=== PATIENT | female | born 1995 | race Caucasian/White ===

== ENCOUNTER 2017-09-08 11:15 | Emergency (ER) | payer SELFPAY ==
[2017-09-08 13:10] LABS: Urine Blood NEGATIVE (NEG); Urine Glucose NEGATIVE (NEG); Urine Protein NEGATIVE (NEG); Urine Specific Gravity 1.015 (1.005-1.030)
--- NOTE | 2017-09-08 13:21 | ER ---
Nurse's Notes [facility] Name: Marci Chandler Age: 21 yrs Sex: Female : 1995 Arrival Date: 09/08/2017 Time: 11:18 Bed 20 Private MD: Out, [facility] Diagnosis: Encounter for screening, unspecified Presentation: 09/08 11:25 Presenting complaint: Patient states: Reports waking up this AM and then hit head "not aj hard or anything" on ceiling of travel trailer. Patient then reported feeling flushed and then feeling "weird" all over, then began feeling like she was having difficulty breathing. Patient is in NAD in triage and reports symptoms have resolved. Transition of care: patient was not received from another setting of care. Onset of symptoms was September 08, 2017. Risk Assessment: Do you want to hurt yourself or someone else? Patient reports no desire to harm self or others. Care prior to arrival: None. 11:25 Method Of Arrival: Ambulatory aj 11:25 Acuity: WAI 4 aj 12:20 Initial Sepsis Screen: Does the patient meet any 2 criteria? No. Patient's initial sv sepsis screen is negative. Does the patient have a suspected source of infection? No. Patient's initial sepsis screen is negative. Triage Assessment: 11:27 General: Appears in no apparent distress. comfortable, Behavior is appropriate for age, aj quiet. Pain: Denies pain. Neuro: Level of Consciousness is awake, alert, obeys commands, Oriented to person, place, time, situation, Appropriate for age. Respiratory: Airway is patent Respiratory effort is even, unlabored, Respiratory pattern is regular, symmetrical. Derm: Skin is intact, is healthy with good turgor, Skin is pink, warm \\T\\ dry. normal. 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 - Social history:: Smoking status: Patient/guardian denies using tobacco. - Ebola Screening: : Patient negative for fever greater than or equal to 101.5 degrees Fahrenheit, and additional compatible Ebola Virus Disease symptoms Patient denies exposure to infectious person Patient denies travel to an Ebola-affected area in the 21 days before illness onset No symptoms or risks identified at this time. Screenin:42 Abuse screen: Denies threats or abuse. Denies injuries from another. Nutritional sv screening: No deficits noted. Tuberculosis screening: No symptoms or risk factors identified. Fall Risk None identified. Assessment: 12:20 General: Appears in no apparent distress. comfortable, Behavior is calm, cooperative, sv appropriate for age. Pain: Denies pain. Neuro: Level of Consciousness is awake, alert, obeys commands, Oriented to person, place, time, situation, Moves all extremities. Full function Gait is steady, Speech is normal. Respiratory: Respiratory effort is even, unlabored, Respiratory pattern is regular, symmetrical. Derm: Skin is normal. Vital Signs: 11:27 BP 131 / 67; Pulse 75; Resp 16; Temp 98.0; Pulse Ox 100% on R/A; Weight 61.23 kg; aj Height 5 ft. 2 in. (157.48 cm); 11:27 Body Mass Index 24.69 (61.23 kg, 157.48 cm) aj ED Course: 11:18 Patient arrived in ED. sb2 11:18 Out, of Town is Private Physician. sb2 11:27 Triage completed. aj 11:27 Arm band placed on left wrist. Patient placed in waiting room, Patient notified of wait aj time. 12:02 Emigdio Villafuerte PA is PHCP. cp 12:02 Suresh Avelar MD is Attending Physician. cp 12:17 Nova Herman, JUAN is Primary Nurse. sv 12:58 Urine collected: clean catch specimen, clear. mh5 13:17 EKG done, by lighting engineering technician. reviewed by Emigdio QUINTERO. at1 13:42 Patient has correct armband on for positive identification. Bed in low position. Call sv light in reach. Adult w/ patient. 13:43 No provider procedures requiring assistance completed. Patient did not have IV access sv during this emergency room visit. Administered Medications: No medications were administered Outcome: 13:21 Discharge ordered by . cp 13:42 Discharged to home ambulatory, with family. sv 13:42 Condition: stable 13:42 Discharge instructions given to patient, Instructed on discharge instructions, follow up and referral plans. Demonstrated understanding of instructions, follow-up care. 13:44 Patient left the ED. sv Signatures: Nova Herman RN RN sv Myers, Amanda, RN RN aj gonzales, Amanda, ice cream shop associate EKG Tat1 Emigdio Villafuerte PA PA cp Martinez, Maria [facility] Raine Barahona sb2
--- NOTE | 2017-09-08 13:21 | EDPHYS ---
Physician Documentation [facility] Name: Marci Chandler Age: 21 yrs Sex: Female : 1995 Arrival Date: 09/08/2017 Time: 11:18 Bed 20 Private MD: Out, of [facility], [facility] ED Physician Suresh Avelar HPI: 09/08 12:45 This 21 yrs old Female presents to ER via Ambulatory with complaints of cp Doesn't Feel Right. 12:45 Mother reports patient awoke this morning about 0300 and felt like heart was racing. cp Denies chest pain. Mother with history of enlarged heart. Mother denies family history of early cardiac . Patient with no current complaints. 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 - Social history:: Smoking status: Patient/guardian denies using tobacco. - Ebola Screening: : Patient negative for fever greater than or equal to 101.5 degrees Fahrenheit, and additional compatible Ebola Virus Disease symptoms Patient denies exposure to infectious person Patient denies travel to an Ebola-affected area in the 21 days before illness onset No symptoms or risks identified at this time. ROS: 12:52 Constitutional: Negative for body aches, chills, fever, poor PO intake. cp 12:52 Eyes: Negative for injury, pain, redness, and discharge. cp 12:52 Cardiovascular: Positive for history of palpitations, Negative for chest pain, edema. 12:52 Respiratory: Negative for cough, shortness of breath, wheezing. 12:52 Abdomen/GI: Negative for abdominal pain, nausea, vomiting, and diarrhea, constipation, anorexia, black/tarry stool, rectal bleeding. 12:52 : Negative for urinary symptoms. 12:52 Skin: Negative for cellulitis, rash. 12:52 Neuro: Negative for altered mental status, headache, seizure activity, syncope, near syncope, visual changes, weakness. 12:52 All other systems are negative. Exam: 12:55 Constitutional: The patient appears in no acute distress, alert, awake, comfortable, cp non-diaphoretic, non-toxic, well developed, well nourished. 12:55 Head/Face: Normocephalic, atraumatic. cp 12:55 Eyes: Periorbital structures: appear normal, Pupils: equal, round, and reactive to light and accomodation, Extraocular movements: intact throughout, Conjunctiva: normal, no exudate, no injection, Sclera: no appreciated abnormality, Lids and lashes: appear normal, bilaterally. 12:55 ENT: External ear(s): are unremarkable, Ear canal(s): are normal, clear, TM's: bulging, is not appreciated, bilaterally, dullness, bilaterally, erythema, is not appreciated, bilaterally, Nose: is normal, Mouth: is normal, no lip abnormalities, no mucosal abnormalities, Posterior pharynx: is normal, airway is patent, no erythema, no exudate, Voice: is normal. 12:55 Neck: C-spine: vertebral tenderness, is not appreciated, crepitus, is not appreciated, ROM/movement: is normal, is supple, without pain, no range of motions limitations, no meningismus, no nuchal rigidity. 12:55 Chest/axilla: Inspection: normal, Palpation: is normal, no crepitus, no tenderness. 12:55 Cardiovascular: Rate: normal, Rhythm: regular, Heart sounds: murmur, not appreciated, Edema: is not appreciated, JVD: is not appreciated. 12:55 Respiratory: the patient does not display signs of respiratory distress, Respirations: normal, no use of accessory muscles, no retractions, no splinting, no tachypnea, labored breathing, is not present, Breath sounds: are clear throughout, no decreased breath sounds, no stridor, no wheezing. 12:55 Abdomen/GI: Inspection: abdomen appears normal, Bowel sounds: active, all quadrants, Palpation: abdomen is soft and non-tender, in all quadrants, rebound tenderness, is not appreciated, voluntary guarding, is not appreciated, involuntary guarding, is not appreciated. 12:55 Back: pain, is absent, ROM is normal. 12:55 Skin: cellulitis, is not appreciated, no rash present. 12:55 Neuro: Orientation: to person, place \T\ time. Mentation: is normal, Cerebellar function: is grossly normal, Motor: moves all fours, strength is normal, Sensation: no obvious gross deficits. Vital Signs: 11:27 BP 131 / 67; Pulse 75; Resp 16; Temp 98.0; Pulse Ox 100% on R/A; Weight 61.23 kg; aj Height 5 ft. 2 in. (157.48 cm); 11:27 Body Mass Index 24.69 (61.23 kg, 157.48 cm) aj MDM: 12:02 Patient medically screened. cp 12:30 Differential Diagnosis cardiac arrythmia, electrolyte abnormality, dehydration, cp anxiety, UTI, . 13:20 Data reviewed: vital signs, nurses notes, lab test result(s), EKG, and as a result, I cp will discharge patient. 13:20 Test interpretation: by ED physician or midlevel provider: ECG. Counseling: I had a cp detailed discussion with the patient and/or guardian regarding: the historical points, exam findings, and any diagnostic results supporting the discharge/admit diagnosis, lab results, the need for outpatient follow up, a family practitioner, to return to the emergency department if symptoms worsen or persist or if there are any questions or concerns that arise at home. 09/08 12:55 Order name: Urine Dipstick--Ancillary (enter results); Complete Time: 13:12 1 09/08 12:55 Order name: Urine --Ancillary (enter results); Complete Time: 13:12 1 09/08 12:35 Order name: EKG; Complete Time: 12:35 cp 09/08 12:35 Order name: EKG - Nurse/Tech; Complete Time: 13:01 cp 09/08 12:35 Order name: Urine Dipstick-Ancillary (obtain specimen); Complete Time: 12:52 cp 09/08 12:35 Order name: Urine Test (obtain specimen); Complete Time: 12:52 cp Administered Medications: No medications were administered Disposition: 09/08/17 13:21 Discharged to Home. Impression: Encounter for screening, unspecified. - Condition is Stable. - Discharge Instructions: Palpitations. - Medication Reconciliation Form, Thank You Letter, Antibiotic Education, Prescription Opioid Use form. - Follow up: Private Physician; When: 2 - 3 days; Reason: Recheck today's complaints. - Problem is new. - Symptoms are resolved. Addendum: 09/10/2017 21:33 Co-signature as Attending Physician, Suresh Avelar MD. r n Signatures: Dispatcher [employer] Nova Christensen RN Evelyn Davalos RN Suresh Valiente MD MD rn Page, Corey, PA PA cp Corrections: (The following items were deleted from the chart) 09/08 13:44 13:21 09/08/2017 13:21 Discharged to Home. Impression: Encounter for screening, sv unspecified. Condition is Stable. Forms are Medication Reconciliation Form, Thank You Letter, Antibiotic Education, Prescription Opioid Use. Follow up: Private Physician; When: 2 - 3 days; Reason: Recheck today's complaints. Problem is new. Symptoms are resolved. cp
--- NOTE | 2017-09-08 13:35 | EKG ---
Test Date: 2017-09-08 Test Time: 13:03:28 Clearing Supervisor: DAHIANA MEASUREMENT RESULTS: Intervals: Rate: 59 MS: 116 QRSD: 80 QT: 388 QTc: 384 [place]: P: 51 MS: 116 QRS: 90 T: 48 INTERPRETIVE STATEMENTS: Sinus bradycardia Rightward axis Borderline ECG No previous ECG available for comparison Electronically Signed On 09-08-17 13:35:18 CDT by Bin Puente
== END 2017-09-08 13:44 | disposition home or self-care (01) ==
LOC: ER 11:15
DX: Z13.9 Encounter for screening, unspecified (principal); Z88.1 Allergy status to other antibiotic agents
CPT/HCPCS: 81003; 81025; 93005; 99283